=== PATIENT | female | born 1970 | race African-American/Black ===

== ENCOUNTER 2016-07-08 13:35 | Emergency (ER) | payer SELFPAY ==
[~2016-07-08 13:35] MED LIST: ADVIL PO; ASAEC PO; AT25 PO; BACDS PO; BUSPAR15 M1 PO; CEFADROXIL1 GM PO; CELEBREX2 PO; COREG25 PO; COREG3 PO; COREG6 PO; FLORASTOR250 MG PO; IRON325 MG PO; K-TABS10 MEQ PO; KLOR-CON M2020 MEQ PO; L20 PO; LEVAQUIN750 MG PO; LIPITOR20 PO; LORTAB 5/325 PO; MAXALT10 MG PO; MEG20 PO; MEGACEUDL PO; MIGRAINE MED; MULTIVIT/MIN PO; MULTIVITAMI1 PO; NAP500 PO; NORCO1 TA1 PO; NORV10 PO; OTC IRON TABLET PO; P10 PO; POTASSIUM PO; PRILOSEC40 MG PO; PROAIR HFA INH; RANITIDINE; SODBICAR10 PO; VALTREX5 PO; ZANTAC 150 PO; ZANTAC150 MG PO; ZITH250 PO
[2016-07-08 13:53] LABS: BASOPHILS 0 %; EOSINOPHILS 0.5 %; EOSINOPHILS ABSOLUTE 0.02 10/3/uL (0.0-0.53); HEMATOCRIT 42.4 % (36.0-48.0); HEMOGLOBIN 13.8 g/dL (12.0-16.0); IMMATURE GRANULOCYTES 0.3 %; IMMATURE GRANULOCYTES ABSOLUTE 0.01 10/3/uL (0.0-0.11); LYMPHOCYTES 32.4 %; LYMPHOCYTES ABSOLUTE 1.27 10/3/uL (0.67-4.30); MANUAL DIFF NO %; MEAN CORPUS HGB CONC 32.5 g/dL (32.0-36.0); MEAN CORPUSCULAR HEMOGLOB 28.3 pg (26.0-34.0); MEAN CORPUSCULAR VOLUME 86.9 fL (80-100); MEAN PLATELET VOLUME 10.3 fL (9.2-13.0); MONOCYTES 13.5 %; MONOCYTES ABSOLUTE 0.53 10/3/uL (0.21-1.20); NEUTROPHILS 53.3 %; NEUTROPHILS ABSOLUTE 2.09 10/3/uL (2.02-8.40); PLATELET COUNT 206 10/3/uL (150-400); RBC DISTRIBUTION WIDTH 14.2 % (12.0-16.0); RED CELL COUNT 4.88 10/6/uL (4.0-5.6); WHITE BLOOD CELLS 3.9 10/3/uL (4.5-10.5)
[2016-07-08 14:04] LABS: PARTIAL THROMBO TIME 23.9 SEC (22.5-37.2)
[2016-07-08 14:13] LABS: BUN (BLOOD UREA NITROGEN) 8 MG/DL (6-23); CALCIUM, SERUM 9.6 MG/DL (8.5-10.4); CHEST PAIN PROFILE TAT 0 Hrs 24 Mins; CHLORIDE, SERUM 108 MMOL/L (96-112); CREATININE 1.03 MG/DL (0.55-1.02); GFR AFRICAN AMERICAN 77 ML/MIN (>=60); GFR NON AFRICAN AMERICAN 66 ML/MIN (>=60); GLUCOSE, SERUM 91 MG/DL (60-99); SODIUM, SERUM 142 MMOL/L (135-148); TROPONIN I <0.02 NG/ML (<0.05)
[2016-07-08 14:15] LABS: CO2 (CARBON DIOXIDE) 25 MMOL/L (24-34); POTASSIUM, SERUM 3.9 MMOL/L (3.5-5.3)
[2016-08-26] MEDS ORDERED: COZAAR100 MG PO (16:45)
[2016-08-26] MEDS ORDERED: SPIRO25 PO (16:45)
[2016-08-26] MEDS ORDERED: PLAQ200B PO (16:46)
[2016-08-26] MEDS ORDERED: CAT1 PO (16:46)
[2016-08-26] MEDS ORDERED: CELLCEPT5 PO (16:48)
[2016-08-26] MEDS ORDERED: PROAIR HFA INH (16:49)
[2016-08-26] MEDS ORDERED: FOSAMAX70 MG PO (16:49)
[2016-08-29] MEDS ORDERED: PCET PO (15:26)
[2016-08-29] MEDS ORDERED: COLCH6 PO (15:27)
[2016-08-29] MEDS ORDERED: ASAB PO (15:28)
[2016-10-22] MEDS ORDERED: COREG25 PO (23:48)
[2016-10-22] MEDS ORDERED: NORV10 PO (23:48)
[2016-10-22] MEDS ORDERED: P10 PO (23:48)
[2016-10-22] MEDS ORDERED: PRILOSEC40 MG PO (23:49)
[2016-10-22] MEDS ORDERED: COZAAR100 MG PO (23:49)
[2016-10-22] MEDS ORDERED: MAXALT10 MG PO (23:50)
[2016-10-22] MEDS ORDERED: CAT1 PO (23:50)
[2016-10-22] MEDS ORDERED: VALTREX5 PO (23:50)
[2016-10-22] MEDS ORDERED: SPIRO25 PO (23:50)
[2016-10-22] MEDS ORDERED: FOSAMAX70 MG PO (23:51)
[2016-10-22] MEDS ORDERED: PLAQ200B PO (23:52)
[2016-10-22] MEDS ORDERED: CELLCEPT5 PO (23:53)
[2016-10-22] MEDS ORDERED: PROAIR HFA INH (23:58)
[2016-10-22] MEDS ORDERED: ASAB PO (23:59)
[2016-10-22] MEDS ORDERED: SODBICAR10 PO (23:59)
[2016-12-15] MEDS ORDERED: ALBUTEROL0.083 % INH (17:53)
[2016-12-15] MEDS ORDERED: PROVHFA INH (17:53)
[2016-12-15] MEDS ORDERED: NORV10 PO (17:55)
[2016-12-15] MEDS ORDERED: FOSAMAX70 MG PO (17:55)
[2016-12-15] MEDS ORDERED: ASAB PO (17:56)
[2016-12-15] MEDS ORDERED: PLAQ200B PO (18:01)
[2016-12-15] MEDS ORDERED: FERROUS SULF325 M1 PO (18:01)
[2016-12-15] MEDS ORDERED: COZAAR100 MG PO (18:02)
[2016-12-15] MEDS ORDERED: TRANDAT100 PO (18:02)
[2016-12-15] MEDS ORDERED: MULTIVITAMI1 PO (18:02)
[2016-12-15] MEDS ORDERED: PRILOSEC40 MG PO (18:04)
[2016-12-15] MEDS ORDERED: CELLCEPT5 PO (18:04)
[2016-12-15] MEDS ORDERED: ZANTAC150 MG PO (18:04)
[2016-12-15] MEDS ORDERED: MAXALT5 MG PO (18:05)
[2016-12-15] MEDS ORDERED: FLORASTOR250 MG PO (18:05)
[2016-12-15] MEDS ORDERED: SODBICAR10 PO (18:05)
[2016-12-15] MEDS ORDERED: ALDACTAZID25 MG/25 M PO (18:06)
[2016-12-15] MEDS ORDERED: VALTREX5 PO (18:07)
== END 2016-07-08 17:05 | disposition home or self-care (01) ==
LOC: ER 13:35
PROVIDERS: Emergency Medicine
DX: R07.9 Chest pain, unspecified (principal); I10 Essential (primary) hypertension; K21.9 Gastro-esophageal reflux disease without esophagitis; D64.9 Anemia, unspecified; M32.9 Systemic lupus erythematosus, unspecified; Z88.0 Allergy status to penicillin; Z79.52 Long term (current) use of systemic steroids; Z79.899 Other long term (current) drug therapy
CPT/HCPCS: 71020; 80048; 83735; 84484; 85025; 85610; 85730; 93005; 99285; A9270-GY

== ENCOUNTER 2016-09-04 18:34 | Emergency (ER) | payer BC ==
[~2016-09-04 18:34] MED LIST changes: +ASAB PO; +CAT1 PO; +CELLCEPT5 PO; +COLCH6 PO; +COZAAR100 MG PO; +FOSAMAX70 MG PO; +PCET PO; +PLAQ200B PO; +SPIRO25 PO
[2016-09-04 19:23] LABS: BASOPHILS 0 %; EOSINOPHILS 1.5 %; EOSINOPHILS ABSOLUTE 0.09 10/3/uL (0.0-0.53); HEMATOCRIT 44.8 % (36.0-48.0); HEMOGLOBIN 14.4 g/dL (12.0-16.0); IMMATURE GRANULOCYTES 0.8 %; IMMATURE GRANULOCYTES ABSOLUTE 0.05 10/3/uL (0.0-0.11); LYMPHOCYTES 21.2 %; LYMPHOCYTES ABSOLUTE 1.25 10/3/uL (0.67-4.30); MEAN CORPUS HGB CONC 32.1 g/dL (32.0-36.0); MEAN CORPUSCULAR HEMOGLOB 28.2 pg (26.0-34.0); MEAN CORPUSCULAR VOLUME 87.7 fL (80-100); MEAN PLATELET VOLUME 10.5 fL (9.2-13.0); MONOCYTES 10.9 %; MONOCYTES ABSOLUTE 0.64 10/3/uL (0.21-1.20); NEUTROPHILS 65.6 %; NEUTROPHILS ABSOLUTE 3.86 10/3/uL (2.02-8.40); PLATELET COUNT 273 10/3/uL (150-400); RBC DISTRIBUTION WIDTH 13.9 % (12.0-16.0); RED CELL COUNT 5.11 10/6/uL (4.0-5.6)
[2016-09-04 19:28] LABS: ER CBC TAT 0 Hrs 18 Mins; MANUAL DIFF NO %; WHITE BLOOD CELLS 5.9 10/3/uL (4.5-10.5)
[2016-09-04 19:33] LABS: BUN (BLOOD UREA NITROGEN) 12 MG/DL (6-23); CHEST PAIN PROFILE TAT 0 Hrs 23 Mins; CHLORIDE, SERUM 108 MMOL/L (96-112); CO2 (CARBON DIOXIDE) 28 MMOL/L (24-34); CREATININE 0.99 MG/DL (0.55-1.02); GFR AFRICAN AMERICAN 80 ML/MIN (>=60); GFR NON AFRICAN AMERICAN 69 ML/MIN (>=60); POTASSIUM, SERUM 4.5 MMOL/L (3.5-5.3); SODIUM, SERUM 143 MMOL/L (135-148); TROPONIN I <0.02 NG/ML (<0.05)
[2016-09-04 19:34] LABS: GLUCOSE, SERUM 89 MG/DL (60-99)
[2016-09-04 19:35] LABS: PARTIAL THROMBO TIME 24.1 SEC (22.5-37.2); PROTIME (NOT ORD) 12.6 SEC (12.0-14.5)
[2016-09-04 21:46] LABS: ASCORBIC ACID (UR NOT ORDER) NEG (NEG); BILIRUBIN, URINE NEGATIVE (NEG); ER URINALYSIS TAT 0 Hrs 10 Mins; KETONE, URINE NEGATIVE (NEG); LEUKOCYTE ESTERASE(NOT OR NEG (NEG); NITRITE (URINE) NEG (NEG); WBC (NOT ORDERED) (RFLEX) 1 (0-5)
[2016-10-22] MEDS ORDERED: COREG25 PO (23:48)
[2016-10-22] MEDS ORDERED: P10 PO (23:48)
[2016-10-22] MEDS ORDERED: NORV10 PO (23:48)
[2016-10-22] MEDS ORDERED: PRILOSEC40 MG PO (23:49)
[2016-10-22] MEDS ORDERED: COZAAR100 MG PO (23:49)
[2016-10-22] MEDS ORDERED: CAT1 PO (23:50)
[2016-10-22] MEDS ORDERED: VALTREX5 PO (23:50)
[2016-10-22] MEDS ORDERED: SPIRO25 PO (23:50)
[2016-10-22] MEDS ORDERED: MAXALT10 MG PO (23:50)
[2016-10-22] MEDS ORDERED: FOSAMAX70 MG PO (23:51)
[2016-10-22] MEDS ORDERED: PLAQ200B PO (23:52)
[2016-10-22] MEDS ORDERED: CELLCEPT5 PO (23:53)
[2016-10-22] MEDS ORDERED: PROAIR HFA INH (23:58)
[2016-10-22] MEDS ORDERED: ASAB PO (23:59)
[2016-10-22] MEDS ORDERED: SODBICAR10 PO (23:59)
[2016-12-15] MEDS ORDERED: PROVHFA INH (17:53)
[2016-12-15] MEDS ORDERED: ALBUTEROL0.083 % INH (17:53)
[2016-12-15] MEDS ORDERED: FOSAMAX70 MG PO (17:55)
[2016-12-15] MEDS ORDERED: NORV10 PO (17:55)
[2016-12-15] MEDS ORDERED: ASAB PO (17:56)
[2016-12-15] MEDS ORDERED: FERROUS SULF325 M1 PO (18:01)
[2016-12-15] MEDS ORDERED: PLAQ200B PO (18:01)
[2016-12-15] MEDS ORDERED: MULTIVITAMI1 PO (18:02)
[2016-12-15] MEDS ORDERED: TRANDAT100 PO (18:02)
[2016-12-15] MEDS ORDERED: COZAAR100 MG PO (18:02)
[2016-12-15] MEDS ORDERED: ZANTAC150 MG PO (18:04)
[2016-12-15] MEDS ORDERED: PRILOSEC40 MG PO (18:04)
[2016-12-15] MEDS ORDERED: CELLCEPT5 PO (18:04)
[2016-12-15] MEDS ORDERED: SODBICAR10 PO (18:05)
[2016-12-15] MEDS ORDERED: MAXALT5 MG PO (18:05)
[2016-12-15] MEDS ORDERED: FLORASTOR250 MG PO (18:05)
[2016-12-15] MEDS ORDERED: ALDACTAZID25 MG/25 M PO (18:06)
[2016-12-15] MEDS ORDERED: VALTREX5 PO (18:07)
== END 2016-09-04 23:41 | disposition home or self-care (01) ==
LOC: ER 18:34
PROVIDERS: Emergency Medicine; Nurse Practitioner
DX: R07.9 Chest pain, unspecified (principal); M32.9 Systemic lupus erythematosus, unspecified; R06.00 Dyspnea, unspecified; R11.0 Nausea; K21.9 Gastro-esophageal reflux disease without esophagitis; I10 Essential (primary) hypertension; G43.909 Migraine, unspecified, not intractable, without status migrainosus; Z88.0 Allergy status to penicillin; Z79.899 Other long term (current) drug therapy; Z79.52 Long term (current) use of systemic steroids; Z79.82 Long term (current) use of aspirin
CPT/HCPCS: 71020; 80048; 81001; 83735; 84484; 84703; 85025; 85610; 85730; 93005; 99285

== ENCOUNTER 2016-09-24 18:29 | Emergency (ER) | payer BC ==
[2016-09-24 17:00] LABS: BASOPHILS 0.1 %; BASOPHILS ABSOLUTE 0.01 10/3/uL (0.0-0.16); EOSINOPHILS 0.1 %; EOSINOPHILS ABSOLUTE 0.01 10/3/uL (0.0-0.53); HEMATOCRIT 45.9 % (36.0-48.0); HEMOGLOBIN 14.8 g/dL (12.0-16.0); IMMATURE GRANULOCYTES 1.8 %; LYMPHOCYTES 19.9 %; LYMPHOCYTES ABSOLUTE 2.25 10/3/uL (0.67-4.30); MEAN CORPUS HGB CONC 32.2 g/dL (32.0-36.0); MEAN CORPUSCULAR HEMOGLOB 28.2 pg (26.0-34.0); MEAN CORPUSCULAR VOLUME 87.4 fL (80-100); MEAN PLATELET VOLUME 10.8 fL (9.2-13.0); MONOCYTES 11.6 %; MONOCYTES ABSOLUTE 1.31 10/3/uL (0.21-1.20); NEUTROPHILS 66.5 %; NEUTROPHILS ABSOLUTE 7.52 10/3/uL (2.02-8.40); NUCLEATED RED BLOOD CELLS 0.3 /100WBC (0-0); PLATELET COUNT 297 10/3/uL (150-400); RBC DISTRIBUTION WIDTH 14.4 % (12.0-16.0); RED CELL COUNT 5.25 10/6/uL (4.0-5.6)
[2016-09-24 17:01] LABS: ER CBC TAT 0 Hrs 10 Mins; MANUAL DIFF NO %; WHITE BLOOD CELLS 11.3 10/3/uL (4.5-10.5)
[2016-09-24 17:06] LABS: PROTIME (NOT ORD) 12.7 SEC (12.0-14.5)
[2016-09-24 17:15] LABS: CALCIUM, SERUM 9.3 MG/DL (8.5-10.4); CHEST PAIN PROFILE TAT 0 Hrs 24 Mins; CHLORIDE, SERUM 106 MMOL/L (96-112); CO2 (CARBON DIOXIDE) 30 MMOL/L (24-34); CREATININE 0.98 MG/DL (0.55-1.02); GFR AFRICAN AMERICAN 81 ML/MIN (>=60); GFR NON AFRICAN AMERICAN 70 ML/MIN (>=60); GLUCOSE, SERUM 94 MG/DL (60-99); SODIUM, SERUM 142 MMOL/L (135-148); TROPONIN I <0.02 NG/ML (<0.05)
[2016-09-24 17:17] LABS: BUN (BLOOD UREA NITROGEN) 26 MG/DL (6-23); POTASSIUM, SERUM 3.2 MMOL/L (3.5-5.3)
[2016-09-24 17:31] LABS: PARTIAL THROMBO TIME 21.5 SEC (22.5-37.2)
[2016-09-24 17:58] LABS: C-REACTIVE PROTEIN < 2.9 MG/L (<8.0)
[2016-09-24 19:11] LABS: SED RATE 5 MM/HR (0-20)
[2016-10-22] MEDS ORDERED: P10 PO (23:48)
[2016-10-22] MEDS ORDERED: NORV10 PO (23:48)
[2016-10-22] MEDS ORDERED: COREG25 PO (23:48)
[2016-10-22] MEDS ORDERED: PRILOSEC40 MG PO (23:49)
[2016-10-22] MEDS ORDERED: COZAAR100 MG PO (23:49)
[2016-10-22] MEDS ORDERED: MAXALT10 MG PO (23:50)
[2016-10-22] MEDS ORDERED: CAT1 PO (23:50)
[2016-10-22] MEDS ORDERED: VALTREX5 PO (23:50)
[2016-10-22] MEDS ORDERED: SPIRO25 PO (23:50)
[2016-10-22] MEDS ORDERED: FOSAMAX70 MG PO (23:51)
[2016-10-22] MEDS ORDERED: PLAQ200B PO (23:52)
[2016-10-22] MEDS ORDERED: CELLCEPT5 PO (23:53)
[2016-10-22] MEDS ORDERED: PROAIR HFA INH (23:58)
[2016-10-22] MEDS ORDERED: ASAB PO (23:59)
[2016-10-22] MEDS ORDERED: SODBICAR10 PO (23:59)
[2016-12-15] MEDS ORDERED: ALBUTEROL0.083 % INH (17:53)
[2016-12-15] MEDS ORDERED: PROVHFA INH (17:53)
[2016-12-15] MEDS ORDERED: NORV10 PO (17:55)
[2016-12-15] MEDS ORDERED: FOSAMAX70 MG PO (17:55)
[2016-12-15] MEDS ORDERED: ASAB PO (17:56)
[2016-12-15] MEDS ORDERED: FERROUS SULF325 M1 PO (18:01)
[2016-12-15] MEDS ORDERED: PLAQ200B PO (18:01)
[2016-12-15] MEDS ORDERED: TRANDAT100 PO (18:02)
[2016-12-15] MEDS ORDERED: MULTIVITAMI1 PO (18:02)
[2016-12-15] MEDS ORDERED: COZAAR100 MG PO (18:02)
[2016-12-15] MEDS ORDERED: ZANTAC150 MG PO (18:04)
[2016-12-15] MEDS ORDERED: PRILOSEC40 MG PO (18:04)
[2016-12-15] MEDS ORDERED: CELLCEPT5 PO (18:04)
[2016-12-15] MEDS ORDERED: MAXALT5 MG PO (18:05)
[2016-12-15] MEDS ORDERED: SODBICAR10 PO (18:05)
[2016-12-15] MEDS ORDERED: FLORASTOR250 MG PO (18:05)
[2016-12-15] MEDS ORDERED: ALDACTAZID25 MG/25 M PO (18:06)
[2016-12-15] MEDS ORDERED: VALTREX5 PO (18:07)
== END 2016-09-24 21:45 | disposition home or self-care (01) ==
LOC: ER 18:29
PROVIDERS: Emergency Medicine
DX: M32.12 Pericarditis in systemic lupus erythematosus (principal); Z88.0 Allergy status to penicillin; Z79.52 Long term (current) use of systemic steroids; Z79.82 Long term (current) use of aspirin; Z79.899 Other long term (current) drug therapy
CPT/HCPCS: 71020; 80048; 83735; 84484; 85025; 85610; 85652; 85730; 86140; 93005; 96374; 96375; 99285; J1170; J1885; J2405